=== PATIENT | female | born 1935 | race Caucasian/White ===

== ENCOUNTER 2016-11-07 19:19 | Emergency (ER) | payer MEDICARE, OTHER ==
--- NOTE | 2016-11-07 19:46 | ERNOTE ---
Medical Problem HPI - General Time Seen by Provider: 11/07/16 19:27 Source: patient, old records Exam Limitations: clinical condition - Immun/Allergies/Home Medications Allergies/Adverse Reactions: Allergies No Known Allergies Allergy (Unverified 11/07/16 19:30) Home Medications: HOME MEDICATIONS Dicyclomine HCl [Bentyl] 10 mg PO DAILY 11/07/16 [Last Taken Unknown] Gabapentin [Neurontin] 100 mg PO HS 11/07/16 [Last Taken Unknown] HYDROcodone/ACETAMINOPHEN [Napavine 5-325] 1 - 2 tab PO Q6H PRN 11/07/16 [Last Taken Unknown] Hydrochlorothiazide [Hydrodiuril] 25 mg PO DAILY 11/07/16 [Last Taken Unknown] Leflunomide [Arava] 10 mg PO DAILY 11/07/16 [Last Taken Unknown] Potassium Chloride [Klor-Con M10] 10 meq PO DAILY 11/07/16 [Last Taken Unknown] traMADol HCL [Ultram] 50 mg PO BID 11/07/16 [Last Taken Unknown] - History of Present History Narrative: Patient is a very active 81y/o that still works at [employer] transfered from [facility] for an elevated troponin. The patient states that she woke up this morning not feeling well, started to vomit multiple times,and also had abdominal pain. She denies diarrhea, denies chest pain, fever or recent illness. She had multiple test done in [facility] ER including a d-dimer and a chest and abdomen CT. The only significant abnormality was an elevated troponin of 1.1. Patient did not want to be admitted in [facility] but requested transfer here. The ERP (Dr Love) called at 17:38 and the patient was accepted for transfer. She received zofran, ativan and toradol and is currently very tired but denies any other symptoms Date (Duration): 11/07/16 Time (Timing): 08:00 Review of Systems - Review of Systems Constitutional: Absent: recent illness, fever EYE: Absent: double vision ENT: Absent: nose congestion, sore throat Respiratory: Absent: shortness of breath, cough, other Gastrointestinal/Abdominal: Present: See HPI, nausea, vomiting, abdominal pain Genitourinary: Present: no symptoms reported Musculoskeletal: Absent: neck pain Neurological: Absent: headache - Patient's Past Medical History Patient History - Medical: Other - rheumatoid arthritis Patient History - Cardiac/Respiratory: No pertinent hx Patient History - Cancer: No Hx of Cancer Patient History - Surgical Procedures: No surgical history - Social History Living Situations: home - with nephew Physical Exam - Physical Exam General Appearance: Present: wd/wn, no apparent distress, lethargic Eye Exam: Normal inspection: bilateral, PERRL: bilateral Ears, Nose, Throat: Present: normal ENT inspection, dry mucous membranes Respiratory: Present: no respiratory distress, no accessory muscle use, chest nontender, lungs clear, decreased breath sounds Cardiovascular/Chest: Present: regular rate, rhythm - frequent PVCs, no murmur Gastrointestinal/Abdominal: Present: normal bowel sounds, nontender, nondistended, soft Extremity Exam: Present: no edema Neurological Exam: Present: oriented, normal mood/affect, no motor/sensory deficits Skin Exam: Present: normal color, warm/dry ED Progress - Results and Orders Patient's Lab Results:: I have reviewed the patient's lab results. - Vital Signs Patient's Vital Signs:: I have reviewed the patient's vital signs. - EKG EKG: NSR, nonspecific ST T wave changes, other - PVCs EKG read: Interp. by me - Progress/Reassessment Progress Note-Subjective: 11/07/16 20:20 discussed troponin results with patient and family offered admission here vs transfer to facility with laundry equipment operator, daughter and patient would prefer transfer to [facility] as closest facility with laundry equipment operator will give aspirin as per chart not given in [facility], give heparin bolus and drip daughter now states that patient also fell this morning while alone at home, possibly when getting up to fast, unknown LOC, had head CT in [facility] 11/07/16 20:26 call to [facility], discussed with Dr Child (ERP) accepted the patient for transfer Departure - Departure Clinical Impression: NSTEMI (non-ST elevated myocardial infarction) Disposition: [facility] Condition: Good
[2016-11-07 19:51] VITALS: BP 103/38
[2016-11-07] MEDS ORDERED: ASPIRIN 81 MG TAB.CHEW PO ONE (20:29)
[2016-11-07] MEDS ORDERED: HEPARIN SODIUM,PORCINE 5,000 UNITS/ML VIAL IV ONE (20:29)
[2016-11-07] MEDS ORDERED: ASPIRIN 81 MG TAB.CHEW ONE (20:29)
[2016-11-07] MEDS ORDERED: HEPARIN SODIUM,PORCINE/D5W 25,000 UNITS/500 ML BAG IV SCH (20:30)
[2016-11-07] MEDS ORDERED: HEPARIN SODIUM,PORCINE 5,000 UNITS/ML VIAL ONE (20:34)
[2016-11-07] MEDS ORDERED: HEPARIN SODIUM,PORCINE/D5W 25,000 UNITS/500 ML BAG IV ONE (20:34)
[2016-11-07] MEDS ORDERED: NORMAL SALINE 1,000 ML IV ONE (20:40)
== END 2016-11-07 20:55 | disposition short-term general hospital (02) ==
LOC: MERGE 19:19 → ER 19:19
DX: I21.4 Non-ST elevation (NSTEMI) myocardial infarction (principal)

== ENCOUNTER 2017-04-15 12:18 | Emergency (ER) | payer MEDICARE, OTHER ==
[2017-04-15] MEDS ORDERED: ASPIRIN 81 MG TAB.CHEW PO ONE (12:44)
[2017-04-15] MEDS ORDERED: ASPIRIN 81 MG TAB.CHEW ONE (12:47)
[2017-04-15 13:03] LABS: Hematocrit 29.5 % (37.0-47.0); Hemoglobin 9.5 gm/dL (12.5-16.0); Mean Cell Volume 101.4 fl (78-100); Mean Corpuscular Hemoglobin 32.6 pg (27-31); Mean Corpuscular Hgb Conc 32.2 g/dl (32-36); Neutrophil # 5.3 K/mm3 (1.3-6.0); Neutrophil % 59.7 % (42-75.0); Platelet Count 148 K/mm3 (150-450); Red Blood Count 2.91 M/mm3 (4.2-5.4); Red Cell Distribution Width 14.2 % (11.5-14.0); White Blood Count 8.8 K/mm3 (4.0-10.5)
[2017-04-15 13:18] LABS: Albumin * 3.1 gm/dl (3.4-5.0); Anion Gap 12.1 mmol/L (6.8-13.8); BUN/Creatinine Ratio 15.1 (9.0-21.6); Bilirubin, Total 0.4 mg/dL (0.0-1.1); Ca. Corrected For Albumin 9.4 mg/dL (8.4-10.2); Carbon Dioxide 28.4 mmol/L (24-32.6); Potassium 3.5 mmol/L (3.4-4.6); Total Protein 6.8 gm/dL (6.2-8.2); Troponin I 0.029 ng/ml (0.00-0.10)
[2017-04-15 15:15] LABS: Urine Appearance Cloudy; Urine Bacteria 2+; Urine Bilirubin Negative (NEGATIVE); Urine Blood 50 /ul (NEGATIVE); Urine Color Yellow; Urine Ketone Negative (NEGATIVE); Urine Nitrite Negative (NEGATIVE); Urine Protein Negative (NEGATIVE); Urine RBC 0-5 /hpf (0-5); Urine Urobilinogen Normal (NORMAL); Urine WBC >50 /hpf (0-5)
--- NOTE | 2017-04-15 16:00 | ERNOTE ---
Chest Pain/Cardiac HPI Date of Service: 04/15/17 Chief Complaint: Chest Pain Time Seen by Provider: 04/15/17 12:38 Source: patient Exam Limitations: no limitations Immunizations: IMMUNIZATION HX Immunizations Up to Date Yes History of Influenza Vaccine No Hx Pneumococcal Vaccination No Allergies/Adverse Reactions: Allergies No Known Allergies Allergy (Verified 04/15/17 16:29) Home Medications: HOME MEDICATIONS Dicyclomine HCl [Bentyl] 10 mg PO DAILY 11/07/16 [Last Taken Unknown] Gabapentin [Neurontin] 300 mg PO BID 11/07/16 [Last Taken Unknown] HYDROcodone/ACETAMINOPHEN [Adams 5-325] 1 - 2 tab PO Q6H PRN 11/07/16 [Last Taken Unknown] Leflunomide [Arava] 10 mg PO DAILY 11/07/16 [Last Taken Unknown] traMADol HCL [Ultram] 50 mg PO BID 11/07/16 [Last Taken Unknown] Aspirin [Aspirin Enteric Coated] 81 mg PO DAILY 04/15/17 [Last Taken Unknown] Ciprofloxacin HCl [Cipro] 500 mg PO BID #20 tab 04/15/17 [Last Taken Unknown] Lisinopril [Zestril] 10 mg PO DAILY 04/15/17 [Last Taken Unknown] Omeprazole 40 mg PO DAILY 04/15/17 [Last Taken Unknown] Rivaroxaban [Xarelto] 15 mg PO BID #14 tab 04/15/17 [Last Taken Unknown] Simvastatin [Zocor] 20 mg PO HS 04/15/17 [Last Taken Unknown] prednisoLONE [Millipred] 5 mg PO DAILY 04/15/17 [Last Taken Unknown] Narrative: Patient presents to the ED for low central chest discomfort. She relates that this am she had dry heaves and the discomfort started after this. Not pleuritic. nothing makes it better or worse. No fever. no SOB. No fever. No diaphoresis. Has been constant since approx 8am. Never had it before. She has not seen anyone else for this. Constant, low central chest, over sternum. No radiation. No abdominal pain. Timing: constant Severity/Quality: mild Chest Pain Radiation: no radiation Modifying Factors - Improves: Present: nothing Modifying Factors - Worsens: Present: nothing Nitro Today/Relief: no nitro taken today Associated Symptoms: Present: nausea, vomiting. Absent: shortness of breath, diaphoresis, fever/chills, abdominal pain Prior Treatment: Denies: recently seen Review of Systems - Review of Systems Constitutional: Absent: fever ENT: Absent: sore throat Respiratory: Present: See HPI Cardiology: Present: See HPI Gastrointestinal/Abdominal: Absent: abdominal pain Genitourinary: Absent: dysuria Neurological: Absent: weakness All Other Systems: All systems neg except as marked - Patient's Past Medical History Patient History - Medical: Arthritis, Rheumatoid Arthritis Patient History - Cardiac/Respiratory: Myocardial Infarction Patient History - Cancer: No Hx of Cancer Patient History - Surgical Procedures: Cholecystectomy, T & A - Family History Mother Family History - Medical: , Arthritis, Diabetes Type 2 Insulin Dependent Father Family History - Medical: No pertinent hx - Social History Living Situations: other Psych History: No pertinent hx Smoking Status: Never smoker Have you smoked in the past 12 months: No Do you dip or chew tobacco: No Alcohol Use: none Drug Use: none - Immunizations Immunizations Up to Date: Yes Hx Pneumococcal Vaccination: No History of Influenza Vaccine: No Physical Exam - Physical Exam General Appearance: Present: alert, no apparent distress Eye Exam: Normal inspection: bilateral, PERRL: bilateral Ears, Nose, Throat: Present: normal ENT inspection Neck: Present: normal inspection Respiratory: Present: no respiratory distress, normal breath sounds, no accessory muscle use, lungs clear Cardiovascular/Chest: Present: regular rate, rhythm, other - central low chest tenderness over sternum Gastrointestinal/Abdominal: Present: normal bowel sounds, nontender, soft. Absent: tenderness Back Exam: Present: normal range of motion Extremity Exam: Present: normal inspection, other - No DVT findings Neurological Exam: Present: alert, normal mood/affect, no motor/sensory deficits , broadcast technician II-XII nml as tested. Absent: motor weakness Skin Exam: Present: normal color. Absent: diaphoresis, skin rash ED Progress - Results and Orders Patient's Lab Results:: I have reviewed the patient's lab results. - Vital Signs Patient's Vital Signs:: I have reviewed the patient's vital signs. Vital Signs: Vital Signs 04/15/17 04/15/17 04/15/17 12:23 12:42 12:49 Temperature 36.5 C Pulse Rate 75 74 70 Respiratory 17 14 Rate Blood Pressure 170/55 166/51 O2 Sat by Pulse 100 100 Oximetry 06/09/2104/15/17 04/15/17 13:35 13:50 14:22 Temperature Pulse Rate 67 68 68 Respiratory 12 13 Rate Blood Pressure 131/59 166/59 131/59 O2 Sat by Pulse 100 97 98 Oximetry 04/15/17 04/15/17 14:38 15:36 Temperature Pulse Rate 96 69 Respiratory 13 13 Rate Blood Pressure 130/52 108/54 O2 Sat by Pulse Oximetry - EKG EKG read: Interp. by me EKG Comments: NSR rate74. Non-specific ST/T wave changes, no clear STEMI. - X-Ray X-Ray #1 X-Ray: chest Interpretation: Interp. by me X-ray Comments: I reviewed images and official x-ray report. - CT/Ultrasound CT/Ultrasound Narrative: I reviwed CT report per radiology - Progress/Reassessment Chief Complaint: Chest Pain Progress Note-Subjective: 04/15/17 15:56 Patient has UTI, IV ABx given. No evidence of sepsis or pyelo. Atypical pain. Second troponin negative, well over 6 hours since onset. She has small PE on the CT scan. I discussed admission with Dr Hamm who was service operations manager Hospitalist. He recommends outpatient management with Lovenox here and Xarelto with office follow-up tomorrow. Pt is agreeable to this approach. I discussed warning signs and reasons to return as well as the need for close f/u. 04/15/17 17:04 Departure - Departure Clinical Impression: UTI (urinary tract infection), Atypical chest pain, Pulmonary embolism Disposition: Home self-care Condition: Stable Instructions: Urinary Tract Infection, Adult, [id number] Additional Instructions: Rest. Antibiotics as directed. Follow-up with primary doctor in the office tomorrow. i have given you a limited supply of the blood thinner, you will need to have your doctor discuss this further with you tomorrow and address further blood thinner medications. Return here if you develop increased pain, fever, trouble breathing or if your condition worsens or changes in any way. Prescriptions: Ciprofloxacin HCl [Cipro] 500 mg PO BID #20 tab Rivaroxaban [Xarelto] 15 mg PO BID #14 tab
[2017-04-15] MEDS ORDERED: ENOXAPARIN SODIUM 100 MG/ML SYRG SC ONE ×2 (16:37→16:45)
[2017-04-15 17:30] VITALS: BP 157/52
== END 2017-04-15 17:48 | disposition home or self-care (01) ==
LOC: MERGE 12:18 → ER 12:18
DX: N39.0 Urinary tract infection, site not specified (principal); R07.89 Other chest pain; I26.99 Other pulmonary embolism without acute cor pulmonale; M06.9 Rheumatoid arthritis, unspecified

== ENCOUNTER 2017-04-29 09:34 | Emergency (ER) | payer MEDICARE, OTHER ==
[2017-04-29 10:12] LABS: Mean Corpuscular Hemoglobin 32.6 pg (27-31); Mean Corpuscular Hgb Conc 31.3 g/dl (32-36); Mean Platelet Volume 11.5 fl (6.0-9.5); Neutrophil # 6.4 K/mm3 (1.3-6.0); Neutrophil % 63.2 % (42-75.0); Platelet Count 162 K/mm3 (150-450); Red Blood Count 1.75 M/mm3 (4.2-5.4); Red Cell Distribution Width 14.1 % (11.5-14.0); White Blood Count 10.1 K/mm3 (4.0-10.5)
--- NOTE | 2017-04-29 10:17 | ERNOTE ---
Chest Pain/Cardiac HPI Time Seen by Provider: 04/29/17 09:45 Source: patient Exam Limitations: no limitations Immunizations: IMMUNIZATION HX Immunizations Up to Date Yes History of Influenza Vaccine No Hx Pneumococcal Vaccination No Allergies/Adverse Reactions: Allergies No Known Allergies Allergy (Verified 04/15/17 16:29) Home Medications: HOME MEDICATIONS Leflunomide [Arava] 10 mg PO DAILY 11/07/16 [Last Taken Unknown] traMADol HCL [Ultram] 50 mg PO TID 11/07/16 [Last Taken Unknown] Aspirin [Aspirin Enteric Coated] 81 mg PO HS 04/15/17 [Last Taken Unknown] Omeprazole 40 mg PO DAILY 04/15/17 [Last Taken Unknown] Simvastatin [Zocor] 20 mg PO HS 04/15/17 [Last Taken Unknown] Calcium Carbonate 600 mg PO DAILY 04/29/17 [Last Taken Unknown] Cholecalciferol (Vitamin D3) [Vitamin D] 2,000 unit PO DAILY 04/29/17 [Last Taken Unknown] Cyanocobalamin (Vitamin B-12) [Vitamin B-12] 5,000 mcg SL DAILY 04/29/17 [Last Taken Unknown] Ferrous Sulfate [Iron] 325 mg PO 3XW 04/29/17 [Last Taken Unknown] Gabapentin [Neurontin] 300 mg PO HS 04/29/17 [Last Taken Unknown] L.acidoph,Paracasei, B.lactis [Probiotic] 1 each PO HS 04/29/17 [Last Taken Unknown] Lisinopril [Zestril] 10 mg PO DAILY 04/29/17 [Last Taken Unknown] predniSONE [Prednisone] 5 mg PO DAILY 04/29/17 [Last Taken Unknown] Narrative: Patient is here for chest pain that started yesterday evening, pain is intermittent ,lasting about five minutes, left sided and radiating to her left shoulder. It seems worse with laying down. She was recently diagnosed with a PE and started on Xarelto. At that time she was also diagnosed with a UTI, took the last dose of antibiotic yesterday morning. She has bouts of intermittent vomiting and diarrhea, had three episodes of diarrhea each the last couple of days, non bloody, non black, no urinary complaints Timing: intermittent Severity/Quality: moderate, pressure Location: left chest Chest Pain Radiation: shoulders Activities at Onset: none Modifying Factors - Worsens: Present: position - laying down last night Nitro Today/Relief: no nitro taken today - Patient's Past Medical History Patient History - Medical: Arthritis, Rheumatoid Arthritis, UTI'S Patient History - Cardiac/Respiratory: Myocardial Infarction, Pulmonary Embolism Patient History - Cancer: No Hx of Cancer Patient History - Surgical Procedures: Cholecystectomy, T & A - Family History Mother Family History - Medical: , Arthritis, Diabetes Type 2 Insulin Dependent Father Family History - Medical: No pertinent hx - Social History Living Situations: other Psych History: No pertinent hx Alcohol Use: none Drug Use: none - Immunizations Immunizations Up to Date: Yes Hx Pneumococcal Vaccination: No History of Influenza Vaccine: No Physical Exam - Physical Exam General Appearance: Present: wd/wn, alert, no apparent distress Eye Exam: Normal inspection: bilateral, PERRL: bilateral Ears, Nose, Throat: Present: normal ENT inspection, normal pharynx Respiratory: Present: no respiratory distress, normal breath sounds, no accessory muscle use, chest nontender, lungs clear Cardiovascular/Chest: Present: regular rate, rhythm, no murmur, normal peripheral pulses Gastrointestinal/Abdominal: Present: normal bowel sounds, nontender, nondistended, soft Extremity Exam: Present: no edema Neurological Exam: Present: alert, oriented, normal mood/affect Skin Exam: Present: warm/dry, pallor ED Progress - Results and Orders Patient's Lab Results:: I have reviewed the patient's lab results. - Vital Signs Patient's Vital Signs:: I have reviewed the patient's vital signs. - EKG EKG: NSR, nonspecific ST T wave changes, unchanged from - 04/15/17, other - prominent Pwave EKG read: Interp. by me - X-Ray X-Ray #1 X-Ray: chest - no acute Interpretation: Reviewed by me - Progress/Reassessment Progress Note-Subjective: 04/29/17 10:40 discussed results with patient, severe anemia, no RI at this point, patient has not pain at this point discussed admission her for transfusion and to monitor troponin vs transfer to cardiology, patient would prefer admission here, no aspirin given today as patient has possible GI bleed and is on Xarelto, took ASA 81mg last night 04/29/17 10:[address] Ziegler, does not want to admit patient here but transferred to cardiology 06/25/17 11:00 patient and family would like to get admitted here, no pain currently 04/29/17 11:[address] Ziegler again, coming to see patient still would like to have her transferred 04/29/17 11:18 call to [facility] 04/29/17 11:25 discussed with Ajit (ERP) accepted patient for transfer Departure - Departure Clinical Impression: Anemia Qualifiers: Anemia type: unspecified type Qualified Code(s): D64.9 - Anemia, unspecified Chest pain Qualifiers: Chest pain type: unspecified Qualified Code(s): R07.9 - Chest pain, unspecified Disposition: [facility] Condition: Good
[2017-04-29 10:22] LABS: Hemoglobin 5.7 gm/dL (12.5-16.0); Prothrombin Time (Patient) 14.1 Seconds (9.4-11.4)
[2017-04-29 10:23] LABS: Hematocrit 18.2 % (37.0-47.0)
[2017-04-29 10:29] LABS: Albumin * 2.8 gm/dl (3.4-5.0); Bilirubin, Total 0.2 mg/dL (0.0-1.1); Ca. Corrected For Albumin 9.7 mg/dL (8.4-10.2); Calcium * 9.1 mg/dL (7.9-10.9); Carbon Dioxide 23.9 mmol/L (24-32.6); Potassium 3.9 mmol/L (3.4-4.6)
[2017-04-29 10:31] LABS: INR 1.36 INR (0.90-1.10); Partial Thrombolplastin Time 27.5 Seconds (24-32)
[2017-04-29 10:32] LABS: Troponin I 0.314 ng/ml (0.00-0.10)
[2017-04-29 11:48] VITALS: BP 132/58
== END 2017-04-29 11:48 | disposition short-term general hospital (02) ==
LOC: MERGE 09:34 → ER 09:34
DX: D64.9 Anemia, unspecified (principal); R07.9 Chest pain, unspecified; M06.9 Rheumatoid arthritis, unspecified; I25.2 Old myocardial infarction

== ENCOUNTER 2018-10-13 13:22 | Observation (INO) | payer MEDICARE, OTHER ==
--- NOTE | 2018-10-13 13:53 | ERNOTE ---
Medical Problem HPI - Narrative Date of Service: 10/13/18 - General Chief Complaint: General Assessment Time Seen by Provider: 10/13/18 13:52 Source: patient, family Exam Limitations: no limitations - Immun/Allergies/Home Medications Immunizations: IMMUNIZATION HX Immunizations Up to Date Yes History of Influenza Vaccine No Hx Pneumococcal Vaccination No Allergies/Adverse Reactions: Allergies methotrexate Allergy (Mild, Verified 10/13/18 13:40) Vomiting rivaroxaban [From Xarelto] Allergy (Unknown, Verified 10/13/18 13:40) Sulfa (Sulfonamide Antibiotics) Adverse Reaction (Mild, Verified 10/13/18 13:40) nausea, vomiting Home Medications: HOME MEDICATIONS Aspirin [Aspirin Enteric Coated] 81 mg PO DAILY 02/27/18 [Last Taken 02/26/18] Calc/D3/Mag/Zn/Nikhil/Kunal/Guinda [Calcium 600 mg Plus Vit D Tab] 1 ea PO DAILY 02/27/18 [Last Taken 02/26/18] Cholecalciferol (Vitamin D3) [Vitamin D3] 2,000 unit PO DAILY 02/27/18 [Last Taken 02/26/18] Ferrous Sulfate [Iron] 325 mg PO Q2D 02/27/18 [Last Taken 02/26/18] Lisinopril [Prinivil] 10 mg PO DAILY 02/27/18 [Last Taken 02/27/18] Simvastatin 20 mg PO HS 02/27/18 [Last Taken 02/26/18] Cranberry Conc/Ascorbic Acid [Cranberry Plus Vitamin C Sftgl] 1 ea PO QID 14 Days cap 03/01/18 [Last Taken Unknown] Metoprolol Tartrate [Lopressor] 50 mg PO Q12H tab 03/01/18 [Last Taken Unknown] furosemide 20 mg tablet 20 mg PO DAILY #90 tab 08/08/18 [Last Taken Unknown] prednisone 2.5 mg tablet 2.5 mg PO DAILY #90 tab 08/08/18 [Last Taken Unknown] tramadol 50 mg tablet 100 mg PO Q8H #180 tab 08/09/18 [Last Taken Unknown] cyanocobalamin (vit B-12) 5,000 mcg disintegrating tablet 5,000 mcg PO .COMPLEX 09/19/18 [Last Taken Unknown] gabapentin 300 mg capsule 900 mg PO TID #270 cap 09/19/18 [Last Taken Unknown] pantoprazole 40 mg tablet,delayed release 40 mg PO DAILY #30 tab 09/19/18 [Last Taken Unknown] - Pain Score Pain Score #1 Pain Score: 0 - History of Present History Narrative: The patient is a 83 year old female who presents for decreased oral intake which has been present for 1 week. There are associated symptoms of i ncreased tremor and lethargy. The patient denies pain). There are no alleviating factors. There are no aggravating factors. Previous treatments have included: none. The past medical history includes: CKD, CHF, CAD, GI bleed, HTN, RA and osteoarthritis. The social history is negative. The patient has had no ill contacts. Son presents with patient whom states that patient has had increased tremors, weakness, lethargy and decreased intake of food and fluids. Review of Systems - Review of Systems Constitutional: Present: fatigue, malaise. Absent: fever EYE: Present: no symptoms reported ENT: Present: no symptoms reported. Absent: ear pain, nasal drainage, sore throat Respiratory: Present: no symptoms reported. Absent: shortness of breath, cough Cardiology: Present: no symptoms reported. Absent: chest pain Gastrointestinal/Abdominal: Present: eating less, drinking less. Absent: nausea, vomiting, diarrhea, abdominal pain Genitourinary: Present: decreased urinary output. Absent: dysuria Musculoskeletal: Present: no symptoms reported Skin: Present: no symptoms reported Neurological: Present: no symptoms reported Endocrine: Present: no symptoms reported Hematologic/Lymphatic: Present: no symptoms reported Psych: Present: no symptoms reported All Other Systems: All systems neg except as marked Medical History (Last Reviewed 10/13/18 @ 16:49 by DHEERAJ Sandoval) Supraspinatus (muscle) (tendon) sprain (Acute) Fall at home (Acute) Cellulitis (Acute) CHF (congestive heart failure) (Acute) Osteoarthritis (Chronic) Heart murmur, systolic (Chronic) grade 3/ crescendo systolic murmur. Unchanged. Generalized pain Onset Date: Unknown H/O echocardiogram Onset Date: ~04/19/17 Joint pain Onset Date: Unknown Rheumatoid arthritis Onset Date: Unknown Chronic kidney disease Onset Date: Unknown Congestive heart failure Onset Date: Unknown Coronary artery disease Onset Date: Unknown GI bleed Onset Date: ~05/15/17 Due to Xarelto Hx of myocardial infarction Onset Date: ~08/2016 Hypertension Onset Date: Unknown Surgical History: Surgical History (Last Reviewed 10/13/18 @ 16:49 by DHEERAJ Sandoval) Hx of cataract Onset Date: ~2017 Bilateral- Dr.Windell Mattson Hx of cholecystectomy Onset Date: ~2008 Hx of tonsillectomy Done @ age 6 Family History: Family History (Last Reviewed 10/13/18 @ 16:49 by DHEERAJ Sandoval) Father , Unknown Causes No problems noted. Grandmother , (Maternal) Diabetes Mother Diabetes Social History: Preferred Language Mosotho Do you have any zoroastrianism or No cultural preference? Smoking Status Never smoker Abuse History No History of abuse Psych History No pertinent hx Alcohol Use none Drug Use none (Last Updated 09/19/18 @ 15:15 by Сергей Lancaster DO) No Social History Section defined Physical Exam - Physical Exam General Appearance: Present: wd/wn, no apparent distress, lethargic Head Exam: Present: normal inspection Eye Exam: Normal inspection: bilateral Ears, Nose, Throat: Present: normal ENT inspection, dry mucous membranes Neck: Present: normal inspection Respiratory: Present: no respiratory distress, normal breath sounds, no accessory muscle use, lungs clear Cardiovascular/Chest: Present: regular rate, rhythm, systolic murmur Peripheral Pulses: N=norm/S=strong/W=weak/B=bound/A=absent: Radial (L): Normal Gastrointestinal/Abdominal: Present: normal bowel sounds, nontender, nondistended, soft, no organomegaly Neurological Exam: Present: alert, oriented, normal mood/affect Skin Exam: Present: normal color, warm/dry Progress - Date and Time Seen: Date and Time: 10/13/18 16:43 Discussed results with , will admit for acute on chronic renal failure and dehydration. Discussed that patient does have a history of CHF with elevation to BNP and 2+ pitting edema to bilateral lower extremities. - Results and Orders Patient's Lab Results:: I have reviewed the patient's lab results. - Vital Signs Patient's Vital Signs:: I have reviewed the patient's vital signs. Vital Signs: Vital Signs 10/13/18 13:33 Temperature 36.8 C Pulse Rate 94 Respiratory Rate 18 Blood Pressure 137/51 - EKG EKG: NSR, nonspecific ST T wave changes EKG read: Reviewed by me - X-Ray X-Ray #1 X-Ray: chest Interpretation: Reviewed by me X-ray Comments: X-RAY REPORT ~[id number] RAD/Chest PA & Lateral *~ Exam Date: 10/13/2018 14:40 Ordering Physician: Marline Conroy Indication: fatigue shaking and dropping things. Weakness. Comparison: March 01, 2018 Technique: Chest PA Lateral * Findings: The lungs demonstrate no focal consolidation or acute abnormality. COPD change reidentified There is no pleural effusion or pneumothorax. Cardiac silhouette and pulmonary vasculature are normal. The osseous structures are within normal limits for age. IMPRESSION: No acute cardiopulmonary process detected Electronically signed by Harry Johnson M.D.. X-Ray #2 X-Ray: abdomen Interpretation: Reviewed by me X-ray Comments: X-RAY REPORT [id number] RAD/Abdomen Flat W/ Upright *~ Exam Date: 10/13/2018 14:31 Ordering Physician: Marline Conroy INDICATION: Abdominal Pain COMPARISON: None TECHNIQUE: Abdomen Flat W/ Upright * FINDINGS: No free air. Nonobstructed nonspecific bowel gas pattern. There is an IVC filter identified. Surgical clips in right upper quadrant. There are vascular calcifications. Osseous structures demonstrate no suspicious abnormality. IMPRESSION: 1. No acute plain film pathology detected. Electronically signed by Harry Johnson M.D.. - Progress/Reassessment Chief Complaint: General Assessment Departure Clinical Impression: Dehydration, History of CHF (congestive heart failure) Acute on chronic renal failure Qualifiers: Acute renal failure type: unspecified Chronic kidney disease stage: unspecified stage Qualified Code(s): N17.9 - Acute kidney failure, unspecified - Departure Disposition: Still a patient Condition: Fair
[2018-10-13 14:22] LABS: Hematocrit 30.8 % (37.0-47.0); Hemoglobin 9.8 gm/dL (12.5-16.0); Mean Cell Volume 102.3 fl (78-100); Mean Corpuscular Hemoglobin 32.6 pg (27-31); Mean Corpuscular Hgb Conc 31.8 g/dl (32-36); Mean Platelet Volume 11.7 fl (8-12.5); Neutrophil # 4.6 K/mm3 (1.3-6.0); Neutrophil % 66.1 % (42-75.0); Platelet Count 133 K/mm3 (150-450); Red Blood Count 3.01 M/mm3 (4.2-5.4); Red Cell Distribution Width 12.9 % (11.5-14.0); White Blood Count 6.9 K/mm3 (4.0-10.5)
[2018-10-13 14:42] LABS: Albumin * 3.4 gm/dl (3.4-5.0); Anion Gap 9.5 mmol/L (6.8-13.8); BUN/Creatinine Ratio 24.3 (9.0-21.6); Bilirubin, Total 0.6 mg/dL (0.0-1.1); CRP 1.3 mg/dL (0.0-0.9); Ca. Corrected For Albumin 9.7 mg/dL (8.4-10.2); Calcium * 9.5 mg/dL (7.9-10.9); Carbon Dioxide 30.9 mmol/L (24-32.6); Potassium 4.4 mmol/L (3.4-4.6); Total Protein 8.2 gm/dL (6.2-8.2); Troponin I 0.033 ng/mL (0.00-0.10)
[2018-10-13 16:35] LABS: Urine Appearance Clear (CLEAR); Urine Bacteria None Seen; Urine Bilirubin Negative (NEGATIVE); Urine Blood 25 /ul (NEGATIVE); Urine Color Yellow; Urine Ketone Negative (NEGATIVE); Urine Nitrite Negative (NEGATIVE); Urine Protein Negative (NEGATIVE); Urine RBC 0-5 /hpf (0-5); Urine Urobilinogen Normal (NORMAL); Urine WBC 0-5 /hpf (0-5)
[2018-10-13] MEDS ORDERED: NORMAL SALINE 1,000 ML IV ONE (16:50)
--- NOTE | 2018-10-13 19:34 | HP ---
Chief Complaint - Chief Complaint Date of Service: 10/13/18 Time of Service: 19:31 Chief Complaint: lethargy/shakes History of Present Illness: Radha Smith, is an 82-year-old white female, patient of Dr. Lancaster, with past medical history of chronic renal failure, congestive heart failure, rheumatoid arthritis, coronary artery disease, who was admitted on 03/13/2018 because of the shakes and lethargy. As per daughter the patient has been having decreased oral intake and has been getting weaker and lethargic in recent days. She also noticed that she would have this shaking/tremors . She would sometimes spill her food as she tries to put it into her mouth. She also fell yesterday but was able to stand up and ambulate again. She was brought to our emergency room where she was found to be dehydrated, acute on chronic renal failure, elevated BNP. Her CXR showed no acute cardiopulmonary findings, her AXR showeed no acute intraabdominal findings. She was admitted for observation. Medical History (Last Reviewed 10/13/18 @ 17:44 by Handy James RN) Supraspinatus (muscle) (tendon) sprain (Acute) Fall at home (Acute) Cellulitis (Acute) CHF (congestive heart failure) (Acute) Osteoarthritis (Chronic) Heart murmur, systolic (Chronic) grade 3/ crescendo systolic murmur. Unchanged. Generalized pain Onset Date: Unknown H/O echocardiogram Onset Date: ~04/19/17 Joint pain Onset Date: Unknown Rheumatoid arthritis Onset Date: Unknown Chronic kidney disease Onset Date: Unknown Congestive heart failure Onset Date: Unknown Coronary artery disease Onset Date: Unknown GI bleed Onset Date: ~05/15/17 Due to Xarelto Hx of myocardial infarction Onset Date: ~08/2016 Hypertension Onset Date: Unknown Surgical History: Surgical History (Last Reviewed 10/13/18 @ 17:44 by Handy James RN) Hx of cataract Onset Date: ~2017 Bilateral- Dr.Windell Mattson Hx of cholecystectomy Onset Date: ~2008 Hx of tonsillectomy Done @ age 6 Family History: Family History (Last Reviewed 10/13/18 @ 17:44 by Handy James RN) Father , Unknown Causes No problems noted. Grandmother , (Maternal) Diabetes Mother Diabetes Social History: Patient Lives/Resources Home Utilized Occupation retired from [employer] Preferred Language [place] Do you have any episcopalian or No cultural preference? Smoking Status Never smoker Have you smoked in the past 12 No months Do you dip or chew tobacco No Abuse History No History of abuse Psych History No pertinent hx Alcohol Use none Drug Use none (Last Updated 09/19/18 @ 15:15 by Сергей Lancaster DO) No Social History Section defined Review Of Systems (GEN) - Review of Systems Generalized/Overall Review: Present: Weakness. Absent: Chills, Fever EENTM: Absent: Blurred Vision Respiratory: Absent: Cough, Shortness of Breath Cardiac: Absent: Chest Pain, Edema, Palpitations Abdominal: Absent: Nausea, Vomiting Genitourinary: Absent: Urgency, Frequency Musculoskeletal: Present: Joint Pain. Absent: Back Pain Immunizations: IMMUNIZATION HX Immunizations Up to Date Yes History of Influenza Vaccine No Hx Pneumococcal Vaccination No Allergies/Adverse Reactions: Allergies Allergy/AdvReac Type Severity Reaction Status Date / Time methotrexate Allergy Mild Vomiting Verified 10/13/18 17:44 rivaroxaban [From Xarelto] Allergy Unknown Verified 10/13/18 17:44 Sulfa (Sulfonamide AdvReac Mild nausea, Verified 10/13/18 17:44 Antibiotics) vomiting Home Medications: HOME MEDICATIONS Aspirin [Aspirin Enteric Coated] 81 mg PO HS 02/27/18 [Last Taken 02/26/18] Cholecalciferol (Vitamin D3) [Vitamin D3] 2,000 unit PO TID 02/27/18 [Last Taken 02/26/18] Ferrous Sulfate [Iron] 325 mg PO Q2D 02/27/18 [Last Taken 02/26/18] Lisinopril [Prinivil] 10 mg PO DAILY 02/27/18 [Last Taken 02/27/18] Simvastatin 20 mg PO HS 02/27/18 [Last Taken 02/26/18] furosemide 20 mg tablet 20 mg PO DAILY #90 tab 08/08/18 [Last Taken Unknown] prednisone 2.5 mg tablet 2.5 mg PO DAILY #90 tab 08/08/18 [Last Taken Unknown] tramadol 50 mg tablet 100 mg PO Q8H #180 tab 08/09/18 [Last Taken Unknown] cyanocobalamin (vit B-12) 5,000 mcg disintegrating tablet 5,000 mcg PO .COMPLEX 09/19/18 [Last Taken Unknown] pantoprazole 40 mg tablet,delayed release 40 mg PO DAILY #30 tab 09/19/18 [Last Taken Unknown] Ascorbic Acid [Vitamin C] 500 mg PO TID 10/13/18 [Last Taken Unknown] Cranberry Conc/Ascorbic Acid [Cranberry Plus Vitamin C Sftgl] 1 each PO TID 10/13/18 [Last Taken Unknown] Gabapentin [Neurontin] 900 mg PO 0700,1300,2100 10/13/18 [Last Taken Unknown] L.acidoph,Paracasei, B.lactis [Probiotic] 1 each PO DAILY 10/13/18 [Last Taken Unknown] Metoprolol Tartrate [Lopressor] 50 mg PO BID 10/13/18 [Last Taken Unknown] Exam - Exam Vital Signs: Vital Signs - Last Taken Temp 37.0 C 10/13/18 17:53 Pulse 77 10/13/18 17:53 Resp 16 10/13/18 17:53 BP 141/38 10/13/18 17:53 Pulse Ox 98 10/13/18 17:53 Constitutional: Present: Alert - AAAO X 2, Somnolent, Elderly ENT Exam: Present: hearing grossly normal Eye Exam: bilateral eye: normal inspection, PERRL, EOMI Neck: Present: supple Respiratory: Present: normal breath sounds, No rales, No wheezing Cardiovascular/Chest: Present: regular rate, rhythm, no JVD, systolic murmur Abdomen: Present: Normal bowel sounds, soft, nontender, nondistended Extremity: Present: no calf tenderness, lower extremity edema Diagnostic Studies: Abnormal Lab Results 10/13/18 10/13/18 10/13/18 Range/Units 14:15 14:15 15:56 RBC 3.01 L (4.2-5.4) M/mm3 Hgb 9.8 L (12.5-16.0) gm/dL Hct 30.8 L (37.0-47.0) % MCV 102.3 H (78-100) fl MCH 32.6 H (27-31) pg MCHC 31.8 L (32-36) g/dl Plt Count 133 L (150-450) K/mm3 Monocytes % 12.3 H (0.0-9) % Lymphocytes # 1.40 L (1.5-3.5) k/mm3 BUN 54 H D (3-23) mg/dL Creatinine 2.22 H D (0.4-1.4) mg/dL Est GFR (Non-Af Amer) 22 L D (60-130) mL/min BUN/Creatinine Ratio 24.3 H (9.0-21.6) Random Glucose 127 H (70-110) mg/dL C-Reactive Prot, Quant 1.3 H (0.0-0.9) mg/dL B-Natriuretic Peptide 3864 H (5-550) pg/mL Urine Blood 25 H (NEGATIVE) /ul Laboratory Results WBC 6.9 K/mm3 (4.0-10.5) 10/13/18 14:15 RBC 3.01 M/mm3 (4.2-5.4) L 10/13/18 14:15 Hgb 9.8 gm/dL (12.5-16.0) L 10/13/18 14:15 Hct 30.8 % (37.0-47.0) L 10/13/18 14:15 MCV 102.3 fl (78-100) H 10/13/18 14:15 MCH 32.6 pg (27-31) H 10/13/18 14:15 MCHC 31.8 g/dl (32-36) L 10/13/18 14:15 RDW 12.9 % (11.5-14.0) 10/13/18 14:15 Plt Count 133 K/mm3 (150-450) L 10/13/18 14:15 MPV 11.7 fl (8-12.5) 10/13/18 14:15 Immature Gran % (Auto) 0.30 % (0.001-0.429) 10/13/18 14:15 Immature Gran # (Auto) 0.02 K/mm3 (0.000-0.0310) 10/13/18 14:15 Neutrophils % 66.1 % (42-75.0) 10/13/18 14:15 Lymphocytes % 20.2 % (20-51) 10/13/18 14:15 Monocytes % 12.3 % (0.0-9) H 10/13/18 14:15 Eosinophils % 0.4 % (0.0-3.0) 10/13/18 14:15 Basophils % 0.7 % (0.0-1.0) 10/13/18 14:15 Nucleated RBC % 0.0 k/mm3 (0-1) 10/13/18 14:15 Neutrophils # 4.6 K/mm3 (1.3-6.0) 10/13/18 14:15 Lymphocytes # 1.40 k/mm3 (1.5-3.5) L 10/13/18 14:15 Monocytes # 0.9 k/mm3 (0.0-1.0) 10/13/18 14:15 Eosinophils # 0.0 k/mm3 (0.0-0.7) 10/13/18 14:15 Absolute Basophils 0.1 k/mm3 (0.0-0.1) 10/13/18 14:15 Sodium 136 mmol/L (132-142) 10/13/18 14:15 Plasma Sodium 136 mmol/L (130-142) 10/13/18 14:15 Potassium 4.4 mmol/L (3.4-4.6) D 10/13/18 14:15 Chloride 100 mmol/L (97-106) 10/13/18 14:15 Carbon Dioxide 30.9 mmol/L (24-32.6) 10/13/18 14:15 Anion Gap 9.5 mmol/L (6.8-13.8) 10/13/18 14:15 BUN 54 mg/dL (3-23) H D 10/13/18 14:15 Creatinine 2.22 mg/dL (0.4-1.4) H D 10/13/18 14:15 Est GFR (Non-Af Amer) 22 mL/min (60-130) L D 10/13/18 14:15 BUN/Creatinine Ratio 24.3 (9.0-21.6) H 10/13/18 14:15 Random Glucose 127 mg/dL (70-110) H 10/13/18 14:15 Lactic Acid, Venous 1.9 mmol/L (0.4-2.0) 10/13/18 14:15 Calcium 9.5 mg/dL (7.9-10.9) 10/13/18 14:15 Calcium Adj for Albumin 9.7 mg/dL (8.4-10.2) 10/13/18 14:15 Total Bilirubin 0.6 mg/dL (0.0-1.1) 10/13/18 14:15 AST 42 U/L (0-48) 10/13/18 14:15 ALT 24 U/L (19-67) 10/13/18 14:15 Alkaline Phosphatase 69 U/L (50-170) 10/13/18 14:15 Troponin I 0.033 ng/mL (0.00-0.10) 10/13/18 14:15 C-Reactive Prot, Quant 1.3 mg/dL (0.0-0.9) H 10/13/18 14:15 B-Natriuretic Peptide 3864 pg/mL (5-550) H 10/13/18 14:15 Total Protein 8.2 gm/dL (6.2-8.2) 10/13/18 14:15 Albumin 3.4 gm/dl (3.4-5.0) 10/13/18 14:15 Amylase 64 U/L (25-115) 10/13/18 14:15 Lipase 86 U/L (73-393) 10/13/18 14:15 Urine Color Yellow 10/13/18 15:56 Urine Appearance Clear (CLEAR) 10/13/18 15:56 Urine pH 6.0 pH (5.0-7.0) 10/13/18 15:56 Ur Specific [employer] 1.010 SP.GR. (1.005-1.010) 10/13/18 15:56 Urine Protein Negative mg/dL (NEGATIVE) 10/13/18 15:56 Urine Glucose (UA) Negative mg/dL (NEGATIVE) 10/13/18 15:56 Urine Ketones Negative mg/dL (NEGATIVE) 10/13/18 15:56 Urine Blood 25 /ul (NEGATIVE) H 10/13/18 15:56 Urine Nitrate Negative (NEGATIVE) 10/13/18 15:56 Urine Bilirubin Negative mg/dl (NEGATIVE) 10/13/18 15:56 Urine Urobilinogen Normal EU/dl (NORMAL) 10/13/18 15:56 Ur Leukocyte Esterase Negative /ul (NEGATIVE) 10/13/18 15:56 Urine RBC 0-5 /hpf (0-5) 10/13/18 15:56 Urine WBC 0-5 /hpf (0-5) 10/13/18 15:56 Ur Epithelial Cells 0-5 /hpf (0-5) 10/13/18 15:56 Urine Bacteria None seen (NONE) 10/13/18 15:56 Urine Culture Comments No culture indicated 10/13/18 15:56 Assessment/Plan - Assessment/Plan (1) Shakes Problem: Acute (2) Dehydration Assessment: will continue with IVF Problem: Acute (3) Acute on chronic renal failure Assessment: likely prerenal from dehydration from decreased oral intake. Problem: Acute Qualifiers: Acute renal failure type: unspecified Chronic kidney disease stage: unspecified stage Qualified Code(s): N17.9 - Acute kidney failure, unspecified; N18.9 - Chronic kidney disease, unspecified (4) History of CHF (congestive heart failure) Problem: Chronic (5) Fall at home Assessment: from weakness and deconditioning. will get PT eval and tx. Problem: Acute Qualifiers: Encounter type: initial encounter Qualified Code(s): W19.XXXA - Unspecified fall, initial encounter; Y92.009 - Unspecified place in unspecified non- institutional (private) residence as the place of occurrence of the external cause (6) Heart murmur, systolic Problem: Chronic (7) Chronic kidney disease, stage III (moderate) Problem: Chronic (8) Edema Problem: Chronic Qualifiers: Edema type: localized Qualified Code(s): R60.0 - Localized edema
[2018-10-13] MEDS ORDERED: ACETAMINOPHEN 325 MG TABLET PO PRN (20:01)
[2018-10-13] MEDS ORDERED: FERROUS SULFATE 325 MG TABLET PO SCH (21:00)
[2018-10-13] MEDS ORDERED: ASPIRIN 81 MG TABLET.DR PO SCH (21:00)
[2018-10-13] MEDS ORDERED: SIMVASTATIN 20 MG TABLET PO SCH (21:00)
[2018-10-13] MEDS: CYANOCOBALAMIN 1,000 MCG TABLET PO SCH (21:50)
[2018-10-13] MEDS: CHOLECALCIFEROL 1,000 UNIT CAPSULE PO SCH (21:50)
[2018-10-13] MEDS: GABAPENTIN 300 MG CAPSULE PO SCH (21:55)
[2018-10-13] MEDS: METOPROLOL TARTRATE 50 MG TABLET PO SCH (21:55)
[2018-10-14 06:38] LABS: Hematocrit 26.6 % (37.0-47.0); Hemoglobin 8.4 gm/dL (12.5-16.0); Mean Cell Volume 101.9 fl (78-100); Mean Corpuscular Hemoglobin 32.2 pg (27-31); Mean Corpuscular Hgb Conc 31.6 g/dl (32-36); Mean Platelet Volume 12.5 fl (8-12.5); Neutrophil # 3.5 K/mm3 (1.3-6.0); Neutrophil % 57.3 % (42-75.0); Platelet Count 110 K/mm3 (150-450); Red Blood Count 2.61 M/mm3 (4.2-5.4)
[2018-10-14 06:43] LABS: Anion Gap 9.1 mmol/L (6.8-13.8); Calcium * 8.7 mg/dL (7.9-10.9); Carbon Dioxide 29.7 mmol/L (24-32.6); Estimated Creat Clear 20.1; Potassium 3.8 mmol/L (3.4-4.6)
[2018-10-14] MEDS: GABAPENTIN 300 MG CAPSULE PO SCH ×2 (06:45→13:26)
[2018-10-14 06:56] LABS: BUN/Creatinine Ratio 24.6 (9.0-21.6)
[2018-10-14] MEDS: ASCORBIC ACID 500 MG TABLET PO SCH ×2 (08:44→13:26)
[2018-10-14] MEDS: METOPROLOL TARTRATE 50 MG TABLET PO SCH (08:44)
[2018-10-14] MEDS: CYANOCOBALAMIN 1,000 MCG TABLET PO SCH (08:44)
[2018-10-14] MEDS: CHOLECALCIFEROL 1,000 UNIT CAPSULE PO SCH ×2 (08:45→13:26)
[2018-10-14] MEDS ORDERED: LACTOBACILLUS ACIDOPHILUS 100 CAP BTL PO SCH (09:00)
[2018-10-14] MEDS ORDERED: LISINOPRIL 10 MG TABLET PO SCH (09:00)
[2018-10-14] MEDS ORDERED: predniSONE 2.5 MG TABLET PO SCH (09:00)
[2018-10-14] MEDS ORDERED: PANTOPRAZOLE SODIUM 40 MG TABLET.EC PO SCH (09:00)
--- NOTE | 2018-10-14 12:56 | DS ---
(1) Dehydration Problem: Resolved (2) Acute on chronic renal failure Problem: Acute Qualifiers: Acute renal failure type: with other specified pathological lesion Chronic kidney disease stage: stage 3 (moderate) Qualified Code(s): N17.8 - Other acute kidney failure; N18.3 - Chronic kidney disease, stage 3 (moderate) (3) Shakes Problem: Resolved (4) Fall at home Problem: Acute Qualifiers: Encounter type: initial encounter Qualified Code(s): W19.XXXA - Unspecified fall, initial encounter; Y92.009 - Unspecified place in unspecified non- institutional (private) residence as the place of occurrence of the external cause Description of Stay: Radha Smith is an 83yo wh. fe. He presented to the emergency room yesterday with weakness and shakiness and involuntary muscle jerking. She had a fall at home. She has no apparent injuries. She was admitted by Dr. Browne who determined that she was dehydrated and gave her IV fluids. She is responded very well to the fluid challenge. Today she is much more alert and feeling much better. Her strength is better and she doesn't have any involuntary muscle jerking. She states she feels like she can go home now. She's had no other intrahospital stay complications. Her labs showed her to be anemic after rehydration the hemoglobin has dropped to 8.4 g. The EGFR has improved back to her baseline in the 30s. Face to face note for home health: Because of her weakened condition and unstableness when standing she would benefit significantly from home health services including nursing for monitoring of vital signs, fluid dynamics, medication monitoring, and physical therapy for limb strengthening and gait training. They can also help with balance training to decrease her fall risk. She'll also benefit from a bath aide to assist her with her bathing and dressing until she gets stronger. Procedures Performed: none Results and Findings: Lab Pending Results 10/13/18 14:15: WBC 6.9, RBC 3.01 L, Hgb 9.8 L, Hct 30.8 L, MCV 102.3 H, MCH 32.6 H, MCHC 31.8 L, RDW 12.9, Plt Count 133 L, MPV 11.7, Immature Gran % (Auto) 0.30, Immature Gran # (Auto) 0.02, Neutrophils % 66.1, Lymphocytes % 20.2, Monocytes % 12.3 H, Eosinophils % 0.4, Basophils % 0.7, Nucleated RBC % 0.0, Neutrophils # 4.6, Lymphocytes # 1.40 L, Monocytes # 0.9, Eosinophils # 0.0, Absolute Basophils 0.1 10/13/18 14:15: Sodium 136, Plasma Sodium 136, Potassium 4.4 D, Chloride 100, Carbon Dioxide 30.9, Anion Gap 9.5, BUN 54 H D, Creatinine 2.22 H D, Est GFR (Non-Af Amer) 22 L D, BUN/Creatinine Ratio 24.3 H, Random Glucose 127 H, Calcium 9.5, Calcium Adj for Albumin 9.7, Total Bilirubin 0.6, AST 42, ALT 24, Alkaline Phosphatase 69, Troponin I 0.033, C-Reactive Prot, Quant 1.3 H, B-Natriuretic Peptide 3864 H, Total Protein 8.2, Albumin 3.4, Amylase 64, Lipase 86 10/13/18 14:15: Lactic Acid, Venous 1.9 10/13/18 15:56: Urine Color Yellow, Urine Appearance Clear, Urine pH 6.0, Ur Specific [place] 1.010, Urine Protein Negative, Urine Glucose (UA) Negative, Urine Ketones Negative, Urine Blood 25 H, Urine Nitrate Negative, Urine Bilirubin Negative, Urine Urobilinogen Normal, Ur Leukocyte Esterase Negative, Urine RBC 0-5, Urine WBC 0-5, Ur Epithelial Cells 0-5, Urine Bacteria None seen, Urine Culture Comments No culture indicated 10/14/18 06:10: WBC 6.0, RBC 2.61 L, Hgb 8.4 L, Hct 26.6 L, MCV 101.9 H, MCH 32.2 H, MCHC 31.6 L, RDW 13.0, Plt Count 110 L, MPV 12.5, Immature Gran % (Auto) 0.30, Immature Gran # (Auto) 0.02, Neutrophils % 57.3, Lymphocytes % 29.2, Monocytes % 11.4 H, Eosinophils % 1.5, Basophils % 0.3, Nucleated RBC % 0.0, Neutrophils # 3.5, Lymphocytes # 1.76, Monocytes # 0.7, Eosinophils # 0.1, Absolute Basophils 0.0 10/14/18 06:10: Sodium 143 H, Plasma Sodium 143 H, Potassium 3.8, Chloride 108 H, Carbon Dioxide 29.7, Anion Gap 9.1, BUN 43 H, Creatinine 1.75 H D, Est GFR (Non-Af Amer) 30 L D, BUN/Creatinine Ratio 24.6 H, Random Glucose 106, Calcium 8.7 Discharge Location: Home Disposition: Home Health Service [facility] Agency: [facility] Home Health Condition: Fair Face to Face Encounter completed per [facility] Guidelines: Yes - see above Discharge Activity: Activity as tolerated Discharge Diet: General/regular food, Low salt Referrals: Сергей Lancaster DO [Primary Care Provider] - Additional Patient Instructions (free text): Scheduled to see me in my office in about 10 days. Repeat BMP and magnesium and one week. Schedule echocardiogram as an outpatient. [facility] new. Please call report and fax orders upon discharge. Complete Home Medications List: Complete Home Medication List: Aspirin [Aspirin Enteric Coated] 81 mg PO HS 02/27/18 Cholecalciferol (Vitamin D3) [Vitamin D3] 2,000 unit PO TID 02/27/18 Ferrous Sulfate [Iron] 325 mg PO Q2D 02/27/18 Lisinopril [Prinivil] 10 mg PO DAILY 02/27/18 Simvastatin 20 mg PO HS 02/27/18 furosemide 20 mg tablet 20 mg PO DAILY #90 tab 08/08/18 prednisone 2.5 mg tablet 2.5 mg PO DAILY #90 tab 08/08/18 tramadol 50 mg tablet 100 mg PO Q8H #180 tab 08/09/18 cyanocobalamin (vit B-12) 5,000 mcg disintegrating tablet 5,000 mcg PO .COMPLEX 09/19/18 pantoprazole 40 mg tablet,delayed release 40 mg PO DAILY #30 tab 09/19/18 Ascorbic Acid [Vitamin C] 500 mg PO TID 10/13/18 Cranberry Conc/Ascorbic Acid [Cranberry Plus Vitamin C Sftgl] 1 each PO TID 10/13/18 Gabapentin [Neurontin] 900 mg PO 0700,1300,2100 10/13/18 L.acidoph,Paracasei, B.lactis [Probiotic] 1 each PO DAILY 10/13/18 Metoprolol Tartrate [Lopressor] 50 mg PO BID 10/13/18 Acetaminophen [Tylenol] 650 mg PO Q6H PRN tablet 10/14/18
[2018-10-14 14:14] VITALS: BP 131/56
[2018-10-15] MEDS ORDERED: LACTOBACILLUS ACIDOPHILUS 100 CAP BTL PO SCH (09:00)
== END 2018-10-14 14:22 | disposition home health service (06) ==
LOC: ER 13:22 → MS 13:22
PROVIDERS: ADMIT Internal Medicine; ATTEND Family Medicine
CPT/HCPCS: 36415; 71020; 71046; 74019; 74020; 80048; 80053; 81001; 82150; 83519; 83605; 83690; 83880; 84484; 85025; 86140; 93005; 96360; 96361; 99285; G0378